=== PATIENT | female | born 2000 | race African-American/Black ===

== ENCOUNTER 2025-07-18 14:33 | Emergency (ER) | payer SELFPAY ==
[2025-07-18 14:38] VITALS: BP 126/81; PULSE 72; TEMP 37; O2SAT 100; BMI 22.1
[2025-07-18 15:52] LABS: Add Urine Microscopic? NO
--- NOTE | 2025-07-18 15:52 | ED_ITS ---
HPI - Headache 2 General: Chief Complaint: Headache Stated Complaint: light headed, LOBO, dizzy, cloudy feeling Time Seen by Provider: 07/18/25 15:36 Source: patient Mode of arrival: ambulatory Limitations: no limitations History of Present Illness: Patient is a 24-year-old female with no pertinent past medical history reports to the emergency department with multiple symptoms. 5 days ago began having headaches and feeling unwell, she also had sudden onset of vaginal bleeding where she states she was not set to start her period. However she notes that it only lasted for couple of days and then had onset of cramping afterwards, does report the possibility of . States that the headache has been generalized and persistent, and she has felt fatigued beginning this morning. Also states while at work she had an episode of lightheadedness and dizziness, and blacked out but did not fall or injure herself. She is not reporting any chest pain or shortness of breath. No vomiting or diarrhea but she states that she does intermittently feel nauseous. Her vitals are stable at this time, no fevers reported at home. MD elicited complaint: headache Onset (ago): day(s) Onset description: gradually Location: generalized Severity: mild Quality & Timing: aching Associated symptoms: Reports lightheadedness, malaise, nausea and pre-syncope; Deny chest pain, fever(s), rash or vomiting Related Data Previous Rx's ?Medication ?Instructions ?Recorded ascorbic acid (vitamin C) 500 mg 500 mg PO ONCE #60 ca ps 07/18/25 capsule ferrous sulfate 325 mg (65 mg 325 mg PO DAILY #60 tabs 07/18/25 iron) tablet Allergies Allergy/AdvReac Type Severity Reaction Status Date / Time No Known Allergies Allergy Verified 07/18/25 14:43 Review of Systems 2 General: Reports: 10 or more systems reviewed and unremarkable except in HPI and below Const: Reports: fatigue and malaise; Denies: fever(s) or chills Eyes: Denies: change in vision ENMT: Denies: throat pain, ear or mastoid pain or nasal discharge Card: Reports: lightheadedness and pre-syncope; Denies: chest pain, palpitations or swelling of feet/ankles Resp: Denies: dyspnea, productive cough or wheezing GI: Reports: nausea; Denies: abdominal pain, vomiting, diarrhea or constipation : Reports: vaginal bleeding and irregular period; Denies: flank pain, difficulty voiding, dysuria, urinary frequency or vaginal discharge Musc: Denies: neck pain, back pain or joint pain Skin/Breast: Denies: rash Neuro: Reports: headache(s) and dizziness; Denies: numbness in extremities or weakness in extremities Physical Exam 2 Const: COMMON NORMALS: no acute distress, patient oriented x3 and no limitations GENERAL APPEARANCE: cooperative, comfortable and well developed ORIENTATION/CONSCIOUSNESS: Yes awake, Yes oriented to person, Yes oriented to place and Yes oriented to time OTHER: nontoxic HENMT: COMMON NORMALS: normocephalic, atraumatic and hearing grossly normal bilaterally HEAD & SCALP: normocephalic and atraumatic Eye: COMMON NORMALS: Equal, round and reactive pupils present, EOMs intact bilaterally and conjunctivae normal CONJUNCTIVA: Yes conjunctivae normal P UPIL: Yes Equal, round and reactive pupils present Neck/C-Spine: COMMON NORMALS: full ROM, supple and no JVD Resp: COMMON NORMALS: normal respiratory effort, No retractions, No use of accessory muscles and clear to auscultation bilaterally AUSCULTATION: clear to auscultation bilaterally Cardio: COMMON NORMALS: no JVD, regular rate, regular rhythm, No clicks present (Cardio), No murmurs present (Cardio) and No rub (Cardio) RATE: r egular rate RHYTHM: regular rhythm GI: COMMON NORMALS: Normal to inspection, nondistended, normoactive bowel sounds present and Soft to palpation AUSCULTATION: Yes normoactive bowel sounds PALPATION: Yes Soft to palpation and Yes Tenderness to palpation present (GI) Details: LLQ RECTAL EXAM: deferred Extremity: COMMON NORMALS: normal to inspection, full ROM and capillary refill normal Neuro: COMMON NORMALS: patient oriented x3, moves all extremities, no focal motor deficits and no sensory deficits noted SENSORIUM/ORIENTATION: Yes oriented to person, Yes oriented to place and Yes oriented to time Skin: COMMON NORMALS: no rashes or lesions noted GENERAL SKIN EXAM: no rashes or lesions noted Course 2 Vital Signs: Vital signs: Vital Signs Temperature 98.6 F 07/18/25 14:38 Pulse Rate 72 07/18/25 14:38 Blood Pressure 126/81 07/18/25 14:38 Pulse Oximetry 100 07/18/25 14:38 Oxygen Delivery Me thod Room Air 07/18/25 14:38 MDM - Headache Medical Decision Making Patient presented with multiple symptoms including headache, lightheaded dizziness, presyncopal episode today, concerns that she might be . Physical examination overall was unremarkable, she does not with lower quadrant tenderness to palpation. Vitals have been stable, nontoxic-appearing. No pertinent past medical history. Evidence of iron deficiency anemia by CBC with hemoglobin 9.5 and low MCV, will start her on ferrous sulfate and vitamin C. However she does not have primary care, will establish her so that she can follow-up for repeat labs and iron studies. Rest of her lab work unremarkable, negative, urinalysis clean. With her anemia, presyncopal episode, and possibly and ultrasound was ordered and this ruled out any ectopic or any other acute abnormality. Thus she is stable for discharge home, she does feel somewhat better after Toradol and IV fluids here in the emergency department and will follow-up with primary care. General return precautions given. Lab Data 07/18/25 15:57 07/18/25 15:57 Radiology Impressions Transvaginal US 07/18/25 16:17 IMPRESSION: No acute findings sonographically including no evidence of ovarian torsion. Laboratory Results WBC 6.98 10^3/uL (3.29-11.43) 07/18/25 15:57 RBC 4.58 10^6/uL (3.85-5.65) 07/18/25 15:57 Hgb 9.50 g/dL (11.27-16.99) L 07/18/25 15:57 Hct 32.6 % (36-47) L 07/18/25 15:57 MCV 71.2 fl (85-98) L 07/18/25 15:57 MCH 20.7 pg (27-33) L 07/18/25 15:57 MCHC 29.1 g/dL (30-55) L 07/18/25 15:57 RDW 18.4 % (12.1-15.1) H 07/18/25 15:57 Plt Count 395 10^3/cmm (157-399) 07/18/25 15:57 MPV 10.7 fL (7.4-10.4) H 07/18/25 15:57 Neut % (Auto) 60.2 % 07/18/25 15:57 Lymph % (Auto) 26.2 % 07/18/25 15:57 Mobile % (Auto) 9.7 % 07/18/25 15:57 Eos % (Auto) 2.7 % 07/18/25 15:57 Baso % (Auto) 0.9 % 07/18/25 15:57 Neut # (Auto) 4.20 10^3/uL (1.8-7.7) 07/18/25 15:57 Lymph # (Auto) 1.8 10^3/uL (0.8-4.8) 07/18/25 15:57 Mobile # (Auto) 0.7 10^3/uL (0.2-0.9) 07/18/25 15:57 Eos # (Auto) 0.2 10^3/uL (0.0-0.8) 07/18/25 15:57 Baso # (Auto) 0.1 10^3/uL (0.0-0.1) 07/18/25 15:57 Nucleated RBC % (auto) 0 % 07/18/25 15:57 Nucleated RBCs # 0.0 /100WBC 07/18/25 15:57 Sodium 140 mmol/L (136-145) 07/18/25 15:57 Potassium 3.7 mmol/L (3.5-5.1) 07/18/25 15:57 Chloride 105 mmol/L (98-107) 07/18/25 15:57 Carbon Dioxide 22 mmol/L (22-29) 07/18/25 15:57 Anion Gap 16.7 (5-19) 07/18/25 15:57 BUN 10 mg/dL (6-20) 07/18/25 15:57 Creatinine 0.9 mg/dL (0.5-0.9) 07/18/25 15:57 GFR Calculation 93.9 mL/min (90-130) 07/18/25 15:57 Glucose 81 mg/dL (65-115) 07/18/25 15:57 Calculated Osmolality 288 mOsm/kg (285-295) 07/18/25 15:57 Calcium 9.0 mg/dL (8.5-10.5) 07/18/25 15:57 Total Bilirubin 0.2 mg/dL (0.15-1.2) 07/18/25 15:57 AST 17 U/L (0-32) 07/18/25 15:57 ALT 8 U/L (0-33) 07/18/25 15:57 Alkaline Phosphatase 60 U/L (35-105) 07/18/25 15:57 Total Protein 7.8 g/dL (6.6-8.7) 07/18/25 15:57 Albumin 4.4 g/dL (3.5-5.2) 07/18/25 15:57 Globulin 3.4 g/dL (1.3-4.6) 07/18/25 15:57 HCG, Qual Negative (Negative) 07/18/25 15:57 Urine Color Yellow (Yellow) 07/18/25 15:40 Urine Appearance Clear (CLEAR) 07/18/25 15:40 Urine pH 6.5 (5-7) 07/18/25 15:40 Ur Specific [place] 1.027 (1.005-1.030) 07/18/25 15:40 Urine Protein Negative (Negative) 07/18/25 15:40 Urine Glucose (UA) Negative (Normal) 07/18/25 15:40 Urine Ketones Negative (Negative) 07/18/25 15:40 Urine Blood Negative (Negative) 07/18/25 15:40 Urine Nitrate Negative (Negative) 07/18/25 15:40 Urine Bilirubin Negative (Negative) 07/18/25 15:40 Urine Urobilinogen 1.0 mg/dL (Negative) 07/18/25 15:40 Ur Leukocyte Esterase Negative (Negative) 07/18/25 15:40 Amorphous Sediment Not Reportable 07/18/25 15:40 Influenza A (PCR) Negative (Negative) 07/18/25 15:40 Influenza Type B (PCR) Negative (Negative) 07/18/25 15:40 RSV (PCR) Negative (Negative) 07/18/25 15:40 SARS-CoV-2 (PCR) Negative (Negative) 07/18/25 15:40 All radiology interpretation(s) finalized by discharge Discharge Plan Discharge Patient Disposition: Home Clinical Impression: Iron deficiency anemia Qualifiers: Iron deficiency anemia type: unspecified iron deficiency Qualified Code(s): D 50.9 - Iron deficiency anemia, unspecified Condition: Stable Prescriptions: New ferrous sulfate 325 mg (65 mg iron) tablet 325 mg PO DAILY Qty: 60 0RF ascorbic acid (vitamin C) 500 mg capsule 500 mg PO ONCE Qty: 60 0RF Rx Instructions: Take simultaneously with ferrous sulfate (iron) Discharge Orders: Discharge ED (Routine); Ordered 07/18/25 Ordered By: Salvador Cat Patient Instructions: Patient Portal & Trae Instructions Activity Restrictions/Additional Instructions: Iron Anemia Discharge Instructions You have been diagnosed with iron deficiency anemia. You will start taking f errous sulfate 325 mg (one tablet) once daily, along with vitamin C 500 mg once daily. These medicines help your body make more red blood cells and improve your energy. - How to take your medicine: - Take the iron tablet and vitamin C together, preferably in the morning. - Iron is best absorbed on an empty stomach, but if it causes stomach upset, you may take it with a small meal. - Avoid taking iron with dairy products, antacids, tea, or coffee, as these can reduce absorption. Wait at least one hour before or after taking iron to have these foods or drinks. - Vitamin C may help your body absorb iron, but recent studies show that iron alone is usually just as effective. - What to expect: - You may notice more energy in a few weeks. - Your blood counts should start to improve within 2-4 weeks. - Treatment usually continues for at least 3-6 months to fully restore iron stores. - Possible side effects: - Iron can cause stomach upset, constipation, diarrhea, nausea, or a metallic taste. - Your stools may become darker; this is normal and not harmful. - If side effects are bothersome, let your doctor know. Sometimes taking iron every other day or switching to a different iron type can help. - Follow-up: - You will establish care with a primary care provider for follow-up. - Your doctor will check your blood counts and iron levels to make sure the treatment is working. - When to call your doctor: - If you have severe stomach pain, vomiting, or cannot tolerate the medicine. - If you notice blood in your stool or feel very weak or dizzy. Remember: Take your medicine as directed and keep your follow-up appointments. This will help you recover and prevent future problems from anemia. Print Language: Tamazight Coding Level of Care Code ED Wheelchair Driver for Saroj Waller
[2025-07-18 16:00] LABS: Glucose Urine UA Negative (Normal); Nitrate Urine Negative (Negative); Specific Gravity, Urine 1.027 (1.005-1.030)
[2025-07-18 16:08] LABS: Charge for UA Resulting for Rev
[2025-07-18 16:15] LABS: Hematocrit 32.6 % (36-47); Hemoglobin 9.50 g/dL (11.27-16.99); Mean Corpuscular HGB Conc 29.1 g/dL (30-55); Mean Corpuscular Hemoglobin 20.7 pg (27-33); Mean Corpuscular Volume 71.2 fl (85-98); Nucleated Red Blood Cells % 0 %; Platelet Count 395 10^3/cmm (157-399); Red Blood Count 4.58 10^6/uL (3.85-5.65); White Blood Count 6.98 10^3/uL (3.29-11.43)
--- NOTE | 2025-07-18 16:17 | USR_ITS ---
PROCEDURE INFORMATION: Exam: US Pelvis, Transvaginal, Non-Obstetric Exam date and time: 07/18/2025 4:39 PM Age: 25 years old Clinical indication: Left lower quadrant pain. Anemia. TECHNIQUE: Imaging protocol: Real-time transvaginal pelvic (non-obstetric) ultrasound with image documentation. Transvaginal imaging was used for better evaluation of the endometrium, adnexa, and/or cervix. COMPARISON: No relevant prior studies available. FINDINGS: Uterus: Uterus is normal. Endometrial stripe is normal measuring 2 mm. Uterus measures 6.7 x 3.3 x 4.8 cm. Right ovary/adnexa: Normal. Measures 1.6 x 3.6 x 4 cm. No mass. Normal ovarian blood flow on color and spectral Doppler. PSV: 9.8 cm/sec. RI: 0.59 Left ovary/adnexa: Normal. Measures 4 x 2.2 x 3.4 cm. No mass. Normal ovarian blood flow on color and spectral Doppler. PSV: 16.8 cm/sec. RI: 0.54 Urinary bladder: Urinary bladder is limited. Intraperitoneal space: No free fluid. US/US transvaginal [id number] IMPRESSION: No acute findings sonographically including no evidence of ovarian torsion.
[2025-07-18 16:35] LABS: Respiratory Syncytial Virus Ce NEGATIVE (Negative); SARS-CoV-2 PCR NEGATIVE (Negative)
[2025-07-18 16:46] LABS: Alanine Aminotransferase 8 U/L (0-33); Albumin Level 4.4 g/dL (3.5-5.2); Alkaline Phosphatase 60 U/L (35-105); Anion Gap 16.7 (5-19); Aspartate Amino Transferase 17 U/L (0-32); Blood Urea Nitrogen 10 mg/dL (6-20); Calcium 9.0 mg/dL (8.5-10.5); Carbon Dioxide 22 mmol/L (22-29); Chloride 105 mmol/L (98-107); Creatinine Clr Calc Pharmacy 83.0586; Globulin 3.4 g/dL (1.3-4.6); Glucose 81 mg/dL (65-115); Osmolality Calculated 288 mOsm/kg (285-295); Potassium 3.7 mmol/L (3.5-5.1); Sodium 140 mmol/L (136-145); Total Protein 7.8 g/dL (6.6-8.7)
[2025-07-18 16:49] LABS: HCG, Serum Qual Negative (Negative)
[2025-07-18 17:44] VITALS: BP 128/83; PULSE 71; O2SAT 100
--- NOTE | 2025-07-19 07:24 | DCPLANNER ---
sent to clinic to establish PCP
== END 2025-07-18 17:48 | disposition home or self-care (01) ==
PROVIDERS: Emergency Provider Physician Assistant
DX: D50.9 Iron deficiency anemia, unspecified (principal); Z11.52 Encounter for screening for COVID-19
CPT/HCPCS: 36415; 76830; 80053; 81003; 84703; 85025; 87637; 99284; J7030